=== PATIENT | male | born 1960 | race African-American/Black ===

== ENCOUNTER 2018-03-30 23:17 | Emergency (ER) | payer OTHER ==
[~2018-03-30] VITALS: Ht 175.3 cm; Wt 90.7 kg
[2018-03-30 23:27] VITALS: BP 130/64
== END 2018-03-31 02:08 | disposition home or self-care (01) ==
LOC: ER 23:17
DX: J18.9 Pneumonia, unspecified organism (principal); K59.00 Constipation, unspecified; R14.1 Gas pain; F12.10 Cannabis abuse, uncomplicated
CPT/HCPCS: 71046

== ENCOUNTER → 2018-04-07 | Emergency (ER) | payer OTHER ==
[~2018-04-07] MED LIST: cefTRIAXone SOD 1,000 MG VL ONE
== END | disposition left against medical advice (07) ==
LOC: ER 02:59
DX: R51 Headache (principal); Z53.21 Procedure and treatment not carried out due to patient leaving prior to being seen by health care provider

== ENCOUNTER 2018-04-13 22:42 | Emergency (ER) | payer OTHER ==
[~2018-04-13] VITALS: Ht 175.3 cm; Wt 90.7 kg
[2018-04-14 00:32] LABS: Eosinophils # (auto) 0.2 uL; Mean Corpuscular Hemoglobin 26.2 pg (28.0-32.0); Mean Corpuscular Hgb Conc. 32.3 g/dL (32.0-36.0); Monocytes # (auto) 0.3 uL; Nucleated Red Blood Cells % 0.2 %; Red Cell Distribution Width 16.2 % (11.8-14.3)
[2018-04-14 00:33] LABS: Basophils # (auto) 0.3 uL; Basophils % (auto) 3.9 % (0.0-2.0); Eosinophils % (auto) 2.5 % (0.0-7.0); Hematocrit 41.7 % (41.0-53.0); Hemoglobin 13.5 g/dL (13.5-17.5); Lymphocytes # (auto) 3.4 uL; Lymphocytes % (auto) 51.3 % (10.0-50.0); Mean Corpuscular Volume 80.9 fL (80.0-100.0); Neutrophils # (auto) 2.5 uL; Neutrophils % (auto) 37.3 % (37.0-80.0); Platelet Count (auto) 223 10^3/uL (140-450); Red Blood Cells 5.15 10^6/uL (4.5-5.90); White Blood Cell 6.7 10^3/uL (4.4-10.8)
[2018-04-14 00:50] LABS: Albumin 3.7 g/dL (3.4-5.0); BUN/Creatinine Ratio 9.5; Calcium 8.3 mg/dL (8.5-10.1); Potassium 3.9 mmol/L (3.5-5.1)
[2018-04-14 00:53] LABS: Bilirubin, Total 0.3 mg/dL (0.2-1.0); Total Protein 7.3 g/dL (6.4-8.2)
[2018-04-14 03:12] LABS: Urine Bacteria NONE SEEN /hpf (None Seen); Urine Blood Negative /uL (Negative); Urine Mucus FEW (None Seen); Urine Specific Gravity 1.032 (1.001-1.035); Urine WBC 1 /hpf (0 - 3)
[2018-04-14 03:21] VITALS: BP 120/85
== END 2018-04-14 03:24 | disposition home or self-care (01) ==
LOC: ER 22:42
DX: J40 Bronchitis, not specified as acute or chronic (principal); F12.90 Cannabis use, unspecified, uncomplicated
CPT/HCPCS: 36415; 71045; 80053; 81001; 85025; 93005

== ENCOUNTER 2018-09-06 08:48 | Emergency (ER) | payer MEDICAID ==
[~2018-09-06] VITALS: Ht 175.3 cm; Wt 95.3 kg
[2018-09-06 09:10] VITALS: BP 117/84
== END 2018-09-06 10:33 | disposition home or self-care (01) ==
LOC: ER 08:53
DX: J20.9 Acute bronchitis, unspecified (principal); D22.0 Melanocytic nevi of lip; F12.10 Cannabis abuse, uncomplicated

== ENCOUNTER 2019-03-04 10:43 | Emergency (ER) | payer MEDICAID ==
[~2019-03-04] VITALS: Ht 177.8 cm; Wt 89.9 kg
== END 2019-03-04 12:22 | disposition left against medical advice (07) ==
LOC: ER 10:43
DX: R51 Headache (principal); Z53.21 Procedure and treatment not carried out due to patient leaving prior to being seen by health care provider

== ENCOUNTER 2019-05-08 12:34 | Emergency (ER) | payer MEDICAID ==
[~2019-05-08] VITALS: Ht 175.3 cm; Wt 88.5 kg
[2019-05-08 14:01] VITALS: BP 132/75
== END 2019-05-08 15:05 | disposition home or self-care (01) ==
LOC: ER 12:34
DX: J20.9 Acute bronchitis, unspecified (principal)
CPT/HCPCS: 71046

== ENCOUNTER 2019-05-10 13:18 | Emergency (ER) | payer MEDICAID | END 2019-05-10 13:33 | disposition left against medical advice (07) | LOC: ER 13:18 | DX: R35.0 Frequency of micturition (principal); Z53.21 Procedure and treatment not carried out due to patient leaving prior to being seen by health care provider ==

== ENCOUNTER 2019-05-11 00:59 | Emergency (ER) | payer MEDICAID ==
[~2019-05-11] VITALS: Ht 175.3 cm; Wt 90.7 kg
[2019-05-11 01:10] VITALS: BP 139/85
== END 2019-05-11 03:58 | disposition left against medical advice (07) ==
LOC: ER 01:02
DX: R39.198 Other difficulties with micturition (principal); Z53.21 Procedure and treatment not carried out due to patient leaving prior to being seen by health care provider

== ENCOUNTER → 2019-12-15 | Emergency (ER) | payer MEDICAID ==
[~2019-12-15] VITALS: Ht 175.3 cm; Wt 81.6 kg
[~2019-12-15] MED LIST changes: +BUPIVACAINE W/ EPINEPH 0.25% INJ 50ML MDV ONE; -cefTRIAXone SOD 1,000 MG VL ONE
[2019-12-15 20:19] VITALS: BP 139/90
[2019-12-15 21:59] LABS: Basophils # (auto) 0.1 10 ^3/uL (0-0.2); Eosinophils # (auto) 0.1 10 ^3/uL (0-0.8); Neutrophils # (auto) 3.9 10 ^3/uL (1.6-8.6); Nucleated Red Blood Cells % 0.1 %
[2019-12-15 22:01] LABS: Basophils % (auto) 1.5 % (0.0-2.0); Eosinophils % (auto) 0.9 % (0.0-7.0); Hematocrit 44.7 % (41.0-53.0); Hemoglobin 14.5 g/dL (13.5-17.5); Lymphocytes # (auto) 3.5 10 ^3/uL (0.4-5.4); Lymphocytes % (auto) 43.7 % (10.0-50.0); Mean Corpuscular Hgb Conc. 32.5 g/dL (32.0-36.0); Monocytes # (auto) 0.4 10 ^3/uL (0-1.3); Monocytes % (auto) 5.1 % (0.0-12.0); Neutrophils % (auto) 48.8 % (37.0-80.0); Platelet Count (auto) 271 10^3/uL (140-450); Red Blood Cells 5.59 10^6/uL (4.5-5.90)
[2019-12-15 22:15] LABS: Alanine Aminotransferase 28 U/L (16-61); Anion Gap 5 (5-15); Aspartate Aminotransferase 17 U/L (15-37); BUN/Creatinine Ratio 9.6; Blood Urea Nitrogen 12 mg/dL (7-18); Calcium 8.9 mg/dL (8.5-10.1); Carbon Dioxide 28 mmol/L (21-32); Chloride 107 mmol/L (98-107); GFR African American 77 mL/min; GFR Non-African American 63 mL/min; Glucose 98 mg/dL (74-106); Potassium 4.2 mmol/L (3.5-5.1); Sodium 140 mmol/L (136-145)
[2019-12-15 22:21] LABS: Alkaline Phosphatase 115 U/L (45-117); Bilirubin, Total 0.6 mg/dL (0.2-1.0); Total Protein 8.2 g/dL (6.4-8.2)
== END | disposition home or self-care (01) ==
LOC: ER 20:18
DX: R07.89 Other chest pain (principal)
CPT/HCPCS: 36415; 71045; 80053; 84484; 85025; 93005

== ENCOUNTER 2020-03-26 09:06 | Emergency (ER) | payer MEDICAID ==
[~2020-03-26] VITALS: Ht 175.3 cm; Wt 86.2 kg
[2020-03-26 09:10] VITALS: BP 131/71
== END 2020-03-26 10:59 | disposition left against medical advice (07) ==
LOC: ER 09:06
DX: R07.89 Other chest pain (principal); Z53.21 Procedure and treatment not carried out due to patient leaving prior to being seen by health care provider
CPT/HCPCS: 93005

== ENCOUNTER 2021-10-04 11:57 | Emergency (ER) | payer MEDICAID ==
[~2021-10-04] VITALS: Ht 175.3 cm; Wt 90.7 kg
[~2021-10-04 11:57] MED LIST changes: +ACYC-161 PO; -BUPIVACAINE W/ EPINEPH 0.25% INJ 50ML MDV ONE; +IBUP800T27 PO
[2021-10-04] MEDS ORDERED: ASPirin 81 mg TAB PO ONE (12:30)
[2021-10-04 13:33] LABS: Eosinophils # (auto) 0.1 10 ^3/uL (0-0.8); Hemoglobin 12.5 g/dL (13.5-17.5); Monocytes # (auto) 0.3 10 ^3/uL (0-1.3)
[2021-10-04 13:35] LABS: Basophils # (auto) 0.1 10 ^3/uL (0-0.2); Basophils % (auto) 1.4 % (0.0-2.0); Eosinophils % (auto) 1.5 % (0.0-7.0); Hematocrit 38.8 % (41.0-53.0); Lymphocytes # (auto) 2.8 10 ^3/uL (0.4-5.4); Lymphocytes % (auto) 46.1 % (10.0-50.0); Mean Corpuscular Hemoglobin 24.6 pg (28.0-32.0); Mean Corpuscular Hgb Conc. 32.2 g/dL (32.0-36.0); Mean Corpuscular Volume 76.3 fL (80.0-100.0); Monocytes % (auto) 5.3 % (0.0-12.0); Neutrophils # (auto) 2.7 10 ^3/uL (1.6-8.6); Neutrophils % (auto) 45.7 % (37.0-80.0); Nucleated Red Blood Cells % 0.1 %; Red Blood Cells 5.08 10^6/uL (4.5-5.90); Red Cell Distribution Width 16.8 % (11.8-14.3)
[2021-10-04 14:04] LABS: Albumin 3.5 g/dL (3.4-5.0); Potassium 3.4 mmol/L (3.5-5.1)
[2021-10-04 14:08] LABS: BUN/Creatinine Ratio 15.9; Bilirubin, Total 0.3 mg/dL (0.2-1.0); Total Protein 7.2 g/dL (6.4-8.2)
[2021-10-04 16:07] LABS: Amphetamine Screen, Urine NEGATIVE (NEGATIVE); Barbiturate Scree,Urine NEGATIVE (NEGATIVE); Benzodiazephine Screen, Urine NEGATIVE (NEGATIVE); Cannabinoid Screen, Urine POSITIVE (NEGATIVE); Cocaine Screen, Urine NEGATIVE (NEGATIVE); Opiate Scree,Urine NEGATIVE (NEGATIVE); Phencyclidine Screen, Urine NEGATIVE (NEGATIVE)
[2021-10-04 16:29] VITALS: BP 109/81
== END 2021-10-04 16:31 | disposition home or self-care (01) ==
LOC: ER 11:57
DX: R07.89 Other chest pain (principal); I10 Essential (primary) hypertension; Z87.891 Personal history of nicotine dependence; Z79.1 Long term (current) use of non-steroidal anti-inflammatories (NSAID); Z79.899 Other long term (current) drug therapy
CPT/HCPCS: 36415; 71046; 80053; 80307; 83735; 84484; 85025; 93005

== ENCOUNTER 2022-03-28 14:44 | Emergency (ER) | payer MEDICAID ==
[2022-03-28] MEDS ORDERED: ASPirin 81 mg TAB PO ONE (15:15)
[2022-03-28 15:34] LABS: Basophils # (auto) 0 10 ^3/uL (0-0.2); Eosinophils # (auto) 0.1 10 ^3/uL (0-0.8); Hemoglobin 10.7 g/dL (13.5-17.5); Lymphocytes # (auto) 1.9 10 ^3/uL (0.4-5.4); Mean Corpuscular Hemoglobin 22.2 pg (28.0-32.0); Nucleated Red Blood Cells % 0.1 %; White Blood Cell 6.1 10^3/uL (4.4-10.8)
[2022-03-28 15:36] LABS: Basophils % (auto) 0.6 % (0.0-2.0); Eosinophils % (auto) 1.2 % (0.0-7.0); Hematocrit 34.7 % (41.0-53.0); Lymphocytes % (auto) 30.9 % (10.0-50.0); Mean Corpuscular Volume 71.7 fL (80.0-100.0); Monocytes # (auto) 0.4 10 ^3/uL (0-1.3); Monocytes % (auto) 6.1 % (0.0-12.0); Neutrophils # (auto) 3.7 10 ^3/uL (1.6-8.6); Neutrophils % (auto) 61.2 % (37.0-80.0); Red Blood Cells 4.84 10^6/uL (4.5-5.90); Red Cell Distribution Width 17.5 % (11.8-14.3)
[2022-03-28 15:50] LABS: Albumin 3.4 g/dL (3.4-5.0); Calcium 8.6 mg/dL (8.5-10.1); Magnesium 2.4 mg/dL (1.6-2.6); Potassium 4.2 mmol/L (3.5-5.1)
[2022-03-28 15:53] LABS: BUN/Creatinine Ratio 10.3; Bilirubin, Total 0.3 mg/dL (0.2-1.0); Total Protein 6.9 g/dL (6.4-8.2)
== END 2022-03-28 16:45 | disposition home or self-care (01) ==
LOC: ER 14:44
DX: R07.89 Other chest pain (principal); I10 Essential (primary) hypertension; R06.02 Shortness of breath; Z87.891 Personal history of nicotine dependence
CPT/HCPCS: 36415; 71046; 80053; 83735; 83880; 84484; 85025; 93005